=== PATIENT | female | born 1975 | race Caucasian/White ===

== ENCOUNTER 2017-04-20 01:35 | Emergency (ER) | payer OTHER ==
[2017-04-20 01:43] VITALS: RESP 16; O2SAT 95
[2017-04-20] MEDS ORDERED: LORazepam 0.5 MG TAB ONE (01:56)
[2017-04-20] MEDS ORDERED: LORazepam 0.5 MG TAB PO ONE (01:59)
--- NOTE | 2017-04-20 02:01 | EDPHY ---
H & P Stated Complaint: FEELING FAINT/ANXIOUS AFTER SLEEP MED Time Seen by Provider: 04/20/17 01:46 HPI/ROS: Chief Complaint: Anxious, possible medication reaction HPI: 31-year-old woman took 50 mg of diphenhydramine to sleep at 9 o'clock at night. 4 hr later she is welcome by her partner from snoring. After waking up patient began feeling very anxious with the feeling of impending doom. [place] like she was in to pass out and very anxious. Did not have any chest pain. No shortness of breath. No nausea or vomiting. Did not have any sweating. Heart was not racing. She has never had similar episodes in the past. Does history of anxiety and depression. Is not feeling suicidal at this time states that she is actually doing quite well on her medications. ROS: 10 point Review of Systems is negative except as noted in the HPI. PMH: Depression Social History: No smoking, rare alcohol, no recreational drug use Family History: non-contributory Physical Exam: Gen: Awake, Alert, No Distress HEENT: Nose: no rhinorrhea Eyes: PERRLA, EOMI Mouth: Moist mucosa Neck: Supple, no JVD Chest: nontender, lungs clear to auscultation Heart: S1, S2 normal, no murmur Abd: Soft, non-tender, no guarding Back: no CVA tenderness, no midline tenderness Ext: no edema, non-tender Skin: no rash Neuro: CN II-XII intact, Sensation grossly intact, Strength 5/5 in bilateral upper and lower extremities - Personal History Current Tetanus Diphtheria and Acellular Pertussis (TDAP): Yes - Medical/Surgical History Hx Asthma: No Hx Chronic Respiratory Disease: No Hx Diabetes: No Hx Cardiac Disease: No Hx Renal Disease: No Hx Cirrhosis: No Hx Alcoholism: No Hx HIV/AIDS: No Hx Splenectomy or Spleen Trauma: No Other PMH: DEPRESSION, ANXIETY - Social History Smoking Status: Never smoked Constitutional: Initial Vital Signs Temperature (C) 36.7 C 04/20/17 01:40 Heart Rate 81 04/20/17 01:40 Respiratory Rate 16 04/20/17 01:40 Blood Pressure 133/75 H 04/20/17 01:40 O2 Sat (%) 95 04/20/17 01:40 O2 Delivery Mode Room Air Allergies/Adverse Reactions: No Known Allergies Allergy (Unverified 04/20/17 01:40) Home Medications: Medication Instructions Recorded FLUoxetine 04/20/17 Medical Decision Making - Diagnostics EKG Interpretation: ECG time 2:03 a.m., sinus rhythm with a rate of 70, normal axis, normal intervals, no acute ST or T-wave changes. Impression: Normal ECG. ED Course/Re-evaluation: Patient is improved after 0.5 mg of Ativan orally. She feels less anxious. She is not have the sense of doom that she is going to pass out. Her ECG is normal. I think her symptoms are likely secondary to being woke up abruptly a after having taken diphenhydramine several hours before. Vital signs otherwise normal. Oxygen levels are appropriate. Will discharge with follow-up with primary care physician, return for any concerns. - Data Points Medications Given: Discontinued Medications Lorazepam (Ativan) 0.5 mg PO EDNOW ONE Stop: 04/20/17 02:00 Last Admin: 04/20/17 02:00 Dose: 0.5 mg Departure - Departure Disposition: Home, Routine, Self-Care Clinical Impression: Lightheaded, Anxiety Condition: Good Instructions: Anxiety (ED), Lightheadedness (ED) Additional Instructions: Follow up with primary care physician in 2-3 days for further evaluation. Return to the emergency department for chest pain, shortness of breath, fainting , nausea, vomiting, or any other concerns. Referrals: MODE[facility] LUGO [Other] - As per Instructions
--- NOTE | 2017-04-20 02:06 | CPEKG ---
Heart Rate: 70 RR Interval: 857 P-R Interval: 140 QRSD Interval: 90 QT Interval: 428 QTC Interval: 462 P Anita: 48 QRS Anita: 56 T Wave Anita: 54 EKG Severity - NORMAL ECG - EKG Impression: SINUS RHYTHM Electronically Signed By: Bret Dickson 20-Apr-2017 06:16:54
[2017-04-20 02:58] VITALS: BP 95/57; PULSE 68; TEMP 99.1
== END 2017-04-20 03:23 | disposition home or self-care (01) ==
DX: F41.9 Anxiety disorder, unspecified (principal); R42 Dizziness and giddiness